=== PATIENT | female | born 1995 | race Caucasian/White ===

== ENCOUNTER → 2017-12-11 | Day surgery (SDC) | payer SELFPAY ==
[~2017-12-11] MED LIST: APAP/HYDROCODONE 325/5 TAB ONE; BUPIV/EPI 0.25% 1:200,000 50ML INFIL ONE; DEXAMETHASONE SOD 4 MG/ML VIAL ONE; FAMOTIDINE(*) 20MG/50ML PREMIX 50 ML IVPB ONE; HYDR-4309 PO; IOPAMIDOL 76% 75 ML INFUS BTL 75 ML ONE; KETOROLAC 30 MG/ML VIAL ONE; LIDOCAINE MPF 1% 5 ML VIAL ONE; MEPERIDINE 50 MG/ML SYR ONE; NORMOSOL R SOLN(*) 1000 ML BAG 1,000 ML IV ONE; NS 0.9% 20 ML SDV 60 ML ONE; NS 0.9% IRRIGATION 1000ML PLCT IR ONE; NS(*) 0.9% 1000 ML BAG 1,000 ML IV ONE; ONDANSETRON 4 MG/2 ML VIAL ONE; PIPERACILLIN/TAZO*3.375GM VIAL 3.375 GM in NS(*) 0.9% 100 ML ADDVANT BAG 100 ML IVPB ONE; PROPOFOL EMUL(*) 10MG/ML 20 ML 20 ML ONE; SUGAMMADEX SOD 200 MG/2 ML SDV ONE; fentaNYL CITR 250 MCG/5 ML AMP ONE
--- NOTE | 2017-12-11 14:25 | ER Report ---
History and Physical Time Seen By MD: 14:11 Hx. of Stated Complaint: RLQ PAIN WORSE WITH WALKING, DIARRHEA, LOSS OF APPETITE, SLIGHT NAUSEA HPI/ROS CHIEF COMPLAINT: Right lower quadrant abdominal pain HISTORY OF PRESENT ILLNESS: 22-year-old female patient presents to emergency room with complaint of right lower quadrant abdominal pain. Patient states that she has had this for the last 3 days. She states that 2 nights ago the pain was significantly worse. She states that has improved since then. She states that she is having pain with laughing as well as walking. She states that is better at this point time. States she has had some diarrhea, no nausea or vomiting. She states she did feel bloated a few days ago. She states she is not taking any medication for this. She states that she talked with her mother who told her to come in and be evaluated, concerned about an appendicitis. REVIEW OF SYSTEMS: Respiratory: No cough, no dyspnea. Cardiovascular: No chest pain, no palpitations. Gastrointestinal: As noted above Musculoskeletal: No back pain. Allergies: Coded Allergies: No Known Drug Allergies (Unverified , 12/11/17) Home Meds No Active Prescriptions or Reported Meds Past Medical/Surgical History Patient has a past medical history of sinusitis, marijuana use, alcohol use. Patient has no pertinent surgical history. Patient has a family medical history of cancer. Reviewed Nurses Notes: Yes Hx Alcohol Use: Yes (OCC) Constitutional Vital Sign - Last 24 Hours 12/11/17 12/11/17 12/11/17 12/11/17 13:56 14:01 14:04 14:11 Temp 97.9 Pulse ??? 97 95 Resp 18 B/P (MAP) 140/99 140/99 (113) Pulse Ox 91 97 O2 Delivery Room Air 12/11/17 12/11/17 12/11/17 12/11/17 14:26 14:30 14:41 14:56 Pulse 67 71 63 B/P (MAP) 115/77 (90) Pulse Ox 94 97 98 12/11/17 12/11/17 12/11/17 12/11/17 15:00 15:11 15:26 15:30 Pulse ? B/P (MAP) ???/??? (1665) 125/73 (90) Pulse Ox 96 12/11/17 15:41 Pulse ??? Pulse Ox 99 Physical Exam General Appearance: The patient is alert, has no immediate need for airway protection and no current signs of toxicity. ENT: Tympanic membranes are pearly-mills, auditory canals are patent, mucous membranes are moist. Respiratory: Chest is non tender, lungs are clear to auscultation. Cardiac: regular rate and rhythm Gastrointestinal: Abdomen is soft and tender in the right lower quadrant, no masses, bowel sounds normal. Musculoskeletal: Neck: Neck is supple and non tender. Extremities have full range of motion and are non tender. Skin: No rashes or lesions. DIFFERENTIAL DIAGNOSIS: After history and physical exam differential diagnosis was considered for abdominal pain including but not limited to appendicitis, cholecystitis, gastritis and urinary tract infection. Medical Decision Making Data Points Result Diagram: 12/11/17 0408 12/11/17 0408 Laboratory Hematology Test 12/11/17 04:08 12/11/17 14:02 Red Blood Count 5.46 M/uL (4.17-5.56) Mean Corpuscular Volume 88.5 fL (80.0-96.0) Mean Corpuscular Hemoglobin 30.1 pg (26.0-33.0) Mean Corpuscular Hemoglobin Concent 34.0 g/dL (32.0-36.0) Red Cell Distribution Width 14.1 % (11.5-14.5) Mean Platelet Volume 7.3 fL (7.2-11.1) Neutrophils (%) (Auto) 61.2 % (39.4-72.5) Lymphocytes (%) (Auto) 29.7 % (17.6-49.6) Monocytes (%) (Auto) 7.7 % (4.1-12.4) Eosinophils (%) (Auto) 1.0 % (0.4-6.7) Basophils (%) (Auto) 0.4 % (0.3-1.4) Nucleated RBC Relative Count (auto) 0.0 /100WBC Neutrophils # (Auto) 6.0 K/uL (2.0-7.4) Lymphocytes # (Auto) 2.9 K/uL (1.3-3.6) Monocytes # (Auto) 0.7 K/uL (0.3-1.0) Eosinophils # (Auto) 0.1 K/uL (0.0-0.5) Basophils # (Auto) 0.0 K/uL (0.0-0.1) Nucleated RBC Absolute Count (auto) 0.00 K/uL Sodium Level 141 mmol/L (137-145) Potassium Level 4.1 mmol/L (3.5-5.0) Chloride Level 101 mmol/L (98-107) Carbon Dioxide Level 23 mmol/L (22-31) Blood Urea Nitrogen 11 mg/dl (7-18) Creatinine 0.70 mg/dl (0.52-1.04) Glomerular Filtration Rate Calc > 60.0 Random Glucose 89 mg/dl (75-110) Calcium Level 10.1 mg/dl (8.4-10.2) Total Bilirubin 1.5 mg/dl (0.2-1.3) Aspartate Amino Transf (AST/SGOT) 25 U/L (0-35) Alanine Aminotransferase (ALT/SGPT) 26 U/L (0-56) Alkaline Phosphatase 67 U/L (0-126) Total Protein 9.3 gm/dl (6.3-8.2) Albumin 5.1 g/dl (3.5-5.0) Amylase Level 80 U/L (0-110) Lipase 92 U/L (23-300) Human Chorionic Gonadotropin, Qual Negative (NEGATIVE) Urine Color Yellow Urine Clarity Clear Urine pH 6.0 pH (4.8-9.5) Urine Specific [place] 1.023 Urine Protein Negative mg/dL (NEGATIVE) Urine Glucose (UA) Negative mg/dL (NEGATIVE) Urine Ketones Negative mg/dL (NEGATIVE) Urine Blood Small (NEGATIVE) Urine Nitrite Negative (NEGATIVE) Urine Bilirubin Negative (NEGATIVE) Urine Urobilinogen 2.0 mg/dL (0.2-1.9) Urine Leukocyte Esterase Negative (NEGATIVE) Urine RBC 1 /HPF (0-2/HPF) Urine WBC <1 /HPF (0-5/HPF) Urine Squamous Epithelial Cells Many /LPF (</=FEW) Urine Bacteria Negative /HPF (NONE-FEW) Urine Mucus Few /HPF (NONE-FEW) Chemistry Test 12/11/17 04:08 12/11/17 14:02 White Blood Count 9.7 k/uL (4.5-11.0) Red Blood Count 5.46 M/uL (4.17-5.56) Hemoglobin 16.4 g/dL (12.0-16.0) Hematocrit 48.3 % (34.0-47.0) Mean Corpuscular Volume 88.5 fL (80.0-96.0) Mean Corpuscular Hemoglobin 30.1 pg (26.0-33.0) Mean Corpuscular Hemoglobin Concent 34.0 g/dL (32.0-36.0) Red Cell Distribution Width 14.1 % (11.5-14.5) Platelet Count 371 K/uL (150-450) Mean Platelet Volume 7.3 fL (7.2-11.1) Neutrophils (%) (Auto) 61.2 % (39.4-72.5) Lymphocytes (%) (Auto) 29.7 % (17.6-49.6) Monocytes (%) (Auto) 7.7 % (4.1-12.4) Eosinophils (%) (Auto) 1.0 % (0.4-6.7) Basophils (%) (Auto) 0.4 % (0.3-1.4) Nucleated RBC Relative Count (auto) 0.0 /100WBC Neutrophils # (Auto) 6.0 K/uL (2.0-7.4) Lymphocytes # (Auto) 2.9 K/uL (1.3-3.6) Monocytes # (Auto) 0.7 K/uL (0.3-1.0) Eosinophils # (Auto) 0.1 K/uL (0.0-0.5) Basophils # (Auto) 0.0 K/uL (0.0-0.1) Nucleated RBC Absolute Count (auto) 0.00 K/uL Glomerular Filtration Rate Calc > 60.0 Calcium Level 10.1 mg/dl (8.4-10.2) Total Bilirubin 1.5 mg/dl (0.2-1.3) Aspartate Amino Transf (AST/SGOT) 25 U/L (0-35) Alanine Aminotransferase (ALT/SGPT) 26 U/L (0-56) Alkaline Phosphatase 67 U/L (0-126) Total Protein 9.3 gm/dl (6.3-8.2) Albumin 5.1 g/dl (3.5-5.0) Amylase Level 80 U/L (0-110) Lipase 92 U/L (23-300) Human Chorionic Gonadotropin, Qual Negative (NEGATIVE) Urine Color Yellow Urine Clarity Clear Urine pH 6.0 pH (4.8-9.5) Urine Specific [place] 1.023 Urine Protein Negative mg/dL (NEGATIVE) Urine Glucose (UA) Negative mg/dL (NEGATIVE) Urine Ketones Negative mg/dL (NEGATIVE) Urine Blood Small (NEGATIVE) Urine Nitrite Negative (NEGATIVE) Urine Bilirubin Negative (NEGATIVE) Urine Urobilinogen 2.0 mg/dL (0.2-1.9) Urine Leukocyte Esterase Negative (NEGATIVE) Urine RBC 1 /HPF (0-2/HPF) Urine WBC <1 /HPF (0-5/HPF) Urine Squamous Epithelial Cells Many /LPF (</=FEW) Urine Bacteria Negative /HPF (NONE-FEW) Urine Mucus Few /HPF (NONE-FEW) Urinalysis Test 12/11/17 14:02 Urine Color Yellow Urine Clarity Clear Urine pH 6.0 pH (4.8-9.5) Urine Specific [place] 1.023 Urine Protein Negative mg/dL (NEGATIVE) Urine Glucose (UA) Negative mg/dL (NEGATIVE) Urine Ketones Negative mg/dL (NEGATIVE) Urine Blood Small (NEGATIVE) Urine Nitrite Negative (NEGATIVE) Urine Bilirubin Negative (NEGATIVE) Urine Urobilinogen 2.0 mg/dL (0.2-1.9) Urine Leukocyte Esterase Negative (NEGATIVE) Urine RBC 1 /HPF (0-2/HPF) Urine WBC <1 /HPF (0-5/HPF) Urine Squamous Epithelial Cells Many /LPF (</=FEW) Urine Bacteria Negative /HPF (NONE-FEW) Urine Mucus Few /HPF (NONE-FEW) EKG/Imaging Imaging EXAMINATION: CT abdomen and pelvis with IV contrast HISTORY: Right lower quadrant abdominal pain. TECHNIQUE: Axial CT images of the abdomen and pelvis were obtained with IV contrast, with coronal and sagittal 2D reconstructed images. One of the following dose optimization techniques was utilized in the performance of this exam: Automated exposure control; adjustment of the mA and/ or kV according to the patient's size; or use of an iterative reconstruction technique. Specific details can be referenced in the facility's radiology CT exam operational policy. Contrast: 75 mL of IV Isovue-370. COMPARISON: None. FINDINGS: Liver: Negative. Gallbladder and bile ducts: The gallbladder is contracted. No bile duct dilatation. Spleen: Negative. Pancreas: Negative. Adrenal glands: Negative. Kidneys: Negative. No hydronephrosis or urinary calculi. Bowel and peritoneum: Exam is positive for appendicitis. The appendix is dilated up to 10 mm, with wall thickening and enhancement and mild periappendiceal stranding. No CT evidence of perforation or abscess formation. Remainder of the small bowel and colon are normal in caliber and unremarkable by CT. Trace amount of free fluid in the pelvis. No free intraperitoneal air. Pelvic structures: Variant uterine anatomy. There is splaying of the endometrial cavity along the mid and upper uterus with intervening myometrium, with CT appearance suggesting a septate or subseptate uterus. No large adnexal cyst. Lymph node assessment: Negative. Vessels: Negative. Musculoskeletal: Negative. Body wall: Negative. Lung bases: Negative. IMPRESSION: 1. Acute appendicitis. No CT evidence of perforation or abscess formation. 2. Trace amount of free fluid in the pelvis, within normal limits. 3. Incidentally noted variant uterine anatomy, suggesting a septate or subseptate uterus. Findings were discussed with AMARIS HUGHES at 12/11/2017 3:33 PM. Report Dictated By: Zane Barba MD at 12/11/2017 3:29 PM Report E-Signed By: Zane Barba MD at 12/11/2017 3:34 PM ED Course/Re-evaluation ED Course Patient was admitted to examined, history and physical were obtained. Differential diagnoses were considered. On examination patient did have some tenderness to the right lower quadrant. An IV was started, a CBC, CMP, urinalysis were done. The lab results were unremarkable. A CT scan of the abdomen and pelvis was done which showed an acute appendicitis. I did discuss the case with Dr. Morris, general surgeon, who came and evaluated the patient. He will go ahead and take her to surgery. We will give her a dose of Zosyn here in the emergency room prior to surgery. Patient verbalized understanding and agreement with plan. Decision to Disposition Date: Dec 11, 2017 Decision to Disposition Time: 15:43 Depart Departure Latest Vital Signs Vital Signs Date Time Temp Pulse Resp B/P (MAP) Pulse Ox O2 Delivery O2 Flow Rate FiO2 12/11/17 15:41 ??? 99 12/11/17 15:30 125/73 (90) 12/11/17 14:01 97.9 18 Room Air Impression: Primary Impression: Appendicitis Condition: Improved Disposition: ADMIT FROM ER TO OR New Scripts No Active Prescriptions or Reported Meds Problem Qualifiers Primary Impression: Appendicitis Appendicitis type: acute appendicitis Acute appendicitis type: with localized peritonitis Qualified Codes: K35.3 - Acute appendicitis with localized peritonitis AMARIS HUGHES Dec 11, 2017 14:25
[2017-12-11 14:27] LABS: PLATELET COUNT, AUTOMATED 371 K/uL (150-450)
--- NOTE | 2017-12-11 15:38 | RADIOLOGY IMAGING REPORT ---
FACILITY: [facility] PATIENT NAME: Hermes Capone : 1995 MR: [id number] V: [id number] EXAM DATE: ORDERING PHYSICIAN: AMARIS HUGHES TECHNOLOGIST: Location: [facility] Patient: Hermes Capone : 1995 Visit/Account:[id number] Date of Sevice: 12/11/2017 EXAMINATION: CT abdomen and pelvis with IV contrast HISTORY: Right lower quadrant abdominal pain. TECHNIQUE: Axial CT images of the abdomen and pelvis were obtained with IV contrast, with coronal a nd sagittal 2D reconstructed images. One of the following dose optimization techniques was utilized in the performance of this exam: Autom ated exposure control; adjustment of the mA and/or kV according to the patient's size; or use of an i terative reconstruction technique. Specific details can be referenced in the facility's radiology C T exam operational policy. Contrast: 75 mL of IV Isovue-370. COMPARISON: None. FINDINGS: Liver: Negative. Gallbladder and bile ducts: The gallbladder is contracted. No bile duct dilatation. Spleen: Negative. Pancreas: Negative. Adrenal glands: Negative. Kidneys: Negative. No hydronephrosis or urinary calculi. Bowel and peritoneum: Exam is positive for appendicitis. The appendix is dilated up to 10 mm, with w all thickening and enhancement and mild periappendiceal stranding. No CT evidence of perforation or a bscess formation. Remainder of the small bowel and colon are normal in caliber and unremarkable by CT. Trace amount of free fluid in the pelvis. No free intraperitoneal air. Pelvic structures: Variant uterine anatomy. There is splaying of the endometrial cavity along the mid and upper uterus with intervening myometrium, with CT appearance suggesting a septate or subsept ate uterus. No large adnexal cyst. Lymph node assessment: Negative. Vessels: Negative. Musculoskeletal: Negative. Body wall: Negative. Lung bases: Negative. IMPRESSION: 1. Acute appendicitis. No CT evidence of perforation or abscess formation. 2. Trace amount of free fluid in the pelvis, within normal limits. 3. Incidentally noted variant uterine anatomy, suggesting a septate or subseptate uterus. Findings were discussed with AMARIS HUGHES at 12/11/2017 3:33 PM. Report Dictated By: Zane Barba MD at 12/11/2017 3:29 PM Report E-Signed By: Zane Barba MD at 12/11/2017 3:34 PM WSN:[id number]
--- NOTE | 2017-12-11 16:24 | Gen Surgery History & Physical ---
History of Present Illness Chief Complaint RLQ pain History of Present Illness This 22 year old female was in her usual state of good health until morning when she awoke with periumbilical abdominal pain. This pain then moved to her RLQ and intensified. This is worse with movement. Only palliative factor is lying still. She denies nausea or vomiting. No fever or chills. Denies dysuria. LMP was last week and reported as normal. She was evaluated in the ED with CT scan that showed a 10 mm inflamed appendix, no evidence of perforation. History Home Meds No Active Prescriptions or Reported Meds Allergies: Coded Allergies: No Known Drug Allergies (Unverified , 12/11/17) Review of Systems All Systems Reviewed/Normal: Yes, Except as Noted Gastrointestinal: Abdominal Pain Exam General Appearance: Alert, Awake, No Acute Distress, Afebrile Neuro: No Gross deficits Eyes: PERRLA ENT: Moist Mucous Membranes Cardiovascular: Regular Rate and Rhythm Respiratory: No Respiratory Distress, Clear to Auscultation GI: Other (Abdomen is soft, tender in RLQ with guarding and rebound) Extremities: Soft and Non Tender Integumentary: Skin Intact without Lesion / Mass Psych: Alert & Oriented X3, Appropriate Mood & Affect Medical Decision Making Data Points Result Diagram: 12/11/17 0408 12/11/17 0408 Assessment and Plan Problems: (1) Appendicitis Status: Acute Assessment & Plan: I discussed in detail with the patient and her mother by telephone who is is [place] the CT scan findings, differential diagnosis, and treatment options. I have recommended we proceed with laparoscopic appendectomy and indicated procedures. I reviewed the risks and possible complications of surgery. All questions were answered. Informed consent obtained. Zosyn 3.375 grams IV ordered. To OR as soon as room is ready. Condition stable Time Spent: > 30 min Venous Thromboembolism VTE Risk Physician Assess for VTE Risk: Yes Patient's VTE Risk: Low VTE Diagnostic Test 2 Days Prior to Admit: No Antithrombotics Is Pt On Any Antithrombotics?: No Prophylaxis Tx Contraindicated Pharmacological Contraindicati: Pt at Low Risk for VTE Problem Qualifiers (1) Appendicitis: Appendicitis type: acute appendicitis Acute appendicitis type: with localized peritonitis Qualified Codes: K35.3 - Acute appendicitis with localized peritonitis XENIA SALAS MD Dec 11, 2017 16:24
--- NOTE | 2017-12-11 18:08 | Post Operative Progress Note ---
Post Operative Progress Note Date: Dec 11, 2017 Time: 18:06 Surgeon: Alexandra Sticker Hand: TANNA Anesthesia: General ET Pre-Op Diagnosis: Acute appendicitis Post-Op Diagnosis: Acute supperuative appendicits Findings: AAST Grade 1 appendicitis Procedure(s): Laparosocpic appendectomy Specimen Removed:(May be N/A): Appendix Complications: None Fluids: 800ml Estimated Blood Loss: < 5 ml Date OP Note Dictated: Dec 11, 2017 Time OP Note Dictated: 18:07 XENIA SALAS MD Dec 11, 2017 18:08
--- NOTE | 2017-12-11 18:15 | Short(Outpt) Discharge Summary ---
Discharge Summary Reason for Hosp/Final Diag: (1) Appendicitis Status: Acute Hospital Course & Plan: I discussed in detail with the patient and her mother by telephone who is is [place] the CT scan findings, differential diagnosis, and treatment options. I have recommended we proceed with laparoscopic appendectomy and indicated procedures. I reviewed the risks and possible complications of surgery. All questions were answered. Informed consent obtained. Zosyn 3.375 grams IV ordered. To OR as soon as room is ready. Departure Discharge to: Home, Self Care Discharge Instructions Home Meds Active Scripts Hydrocodone Bit/Acetaminophen (NORCO 5-325 TABLET) 1 Each Tablet, 1 EACH PO Q4- 6H for PAIN, #20 TAB 0 Refills Prov:XENIA SALAS MD 12/11/17 Diet: Regular Activity: No Heavy Lifting Special Instructions: Ice packs to incisions for next 48 hours No lifting or straining for next two weeks Milk of Magnesia to prevent constipation while taking Vernon Do not take cold medicine or Tylenol while taking Vernon as that would be too much Tylenol Okay to shower Follow up in General Surgery clinic in 7-10 days Copies to: LELIA RODARTE PA-C; MARTIN MOULTON MD Problem Qualifiers (1) Appendicitis: Appendicitis type: acute appendicitis Acute appendicitis type: with localized peritonitis Qualified Codes: K35.3 - Acute appendicitis with localized peritonitis XENIA SALAS MD Dec 11, 2017 18:15
[2017-12-11 18:45] VITALS: BP 127/72
--- NOTE | 2017-12-11 18:50 | OPERATIVE REPORT 1 ---
EVENT DATE: December 11, 2017 SURGEON: Art Morris MD ANESTHESIOLOGIST: ANESTHESIA: General endotracheal anesthesia. CFA: claims vice president PREOPERATIVE DIAGNOSIS Acute appendicitis. POSTOPERATIVE DIAGNOSIS Acute suppurative appendicitis. PROCEDURE PERFORMED Laparoscopic appendectomy. [*] MTDD
[2017-12-11 19:00] VITALS: BP 119/56
--- NOTE | 2017-12-11 19:05 | OPERATIVE REPORT 1 ---
EVENT DATE: December 11, 2017 SURGEON: Art Morris MD ANESTHESIOLOGIST: Delmar Carpio MD ANESTHESIA: General endotracheal anesthesia. SURVEYOR HYDROGRAPHIC: intake worker PREOPERATIVE DIAGNOSIS Acute appendicitis. POSTOPERATIVE DIAGNOSIS Acute suppurative appendicitis. PROCEDURE PERFORMED Laparoscopic appendectomy. PROCEDURE IN DETAIL The patient was taken to the operating room and placed in the supine position. After induction of adequate general endotracheal anesthesia, the abdomen was then prepped and draped in the usual sterile fashion. A timeout was taken. Attention was then turned to the umbilicus where an incision was made at the infraumbilical fold. This was carried through the skin and subcutaneous tissue. The umbilicus was then grasped with a penetrating towel clip and retracted anteriorly and superiorly. The infraumbilical fascia was then incised sharply with a 15 blade. The peritoneal cavity was entered under direct visualization. An 0 Vicryl [id number] suture was placed in the fascia. A 10/12 trocar was then introduced. A pneumoperitoneum was then created. The laparoscope was introduced. General exploration was then begun. This was remarkable for evidence of acute suppurative appendicitis. The appendix was quite long and was lying in the pelvis. There was no evidence of periappendiceal abscess or perforation. Both ovaries were inspected and noted to contain small cysts. Two 5 mm ports were placed, one in the right upper quadrant and one in the left lower quadrant. The mesoappendix was then grasped. It was divided using the Harmonic scalpel. An Endo HOWARD stapling device was then used to divide the cecum at the base of the appendix. With this completed, the appendix was then placed in an Endo Pouch and brought out via the umbilical port site. The port was returned and the peritoneal cavity irrigated with copious amounts of saline. Adequate hemostasis was confirmed. The 5 mm trocars were removed under direct visualization. Adequate hemostasis was confirmed. The 0 Vicryl suture was then tied. An additional 0 Vicryl suture was placed in the fascia to assure good fascial approximation. The wounds were then infiltrated with 0.25% Marcaine with epinephrine for postop pain control. The skin of all wounds was then closed with 4-0 Monocryl suture and Dermabond. The patient tolerated this well. Final sponge, instrument, and needle counts were correct times two. She was taken to the PACU in stable condition. She will be discharged home and followed as an outpatient. Wound care and aftercare instructions are provided. Discharge medication was [place] one to two q.4 p.r.n. pain, #20. MTDD
[2017-12-11 19:06] VITALS: BP 120/63
[2017-12-11 19:09] VITALS: BP 128/80
== END ==
LOC: ER 14:01 → OR 15:53
PROVIDERS: ATTEND Surgery
DX: K35.3 Acute appendicitis with localized peritonitis (principal)
CPT/HCPCS: 44970; 74177; 81001; 82150; 83690; 84703; 85025; 99284; J1100; J1885; J2001; J2175; J2405; J2543; J2704; J3010; J3490; J7030; J7050; Q9967; 82040; 82247; 82310; 82374; 82435; 82565; 82947; 84075; 84132; 84155; 84295; 84450; 84460; 84520; 88304; 96361; 96365; 96368